=== PATIENT | male | born 1945 | race Caucasian/White ===

== ENCOUNTER 2017-07-13 07:30 | Day surgery (SDC) | payer MEDICARE ==
[~2017-07-13] VITALS: Ht 193 cm; Wt 102.5 kg
[~2017-07-13 07:30] MED LIST: ASPI81CH PO; ATEN50 PO; CYAN100 PO; ERGO400 PO; ESCI10 PO; Flonase 0.05% N16 GM; HYDCHL25 PO; LORA.5 PO; LOVA40 PO; UBID10 PO
== END 2017-07-13 22:49 | disposition home or self-care (01) ==
LOC: ORSCMMR 07:30
DX: Z12.11 Encounter for screening for malignant neoplasm of colon (principal); D12.2 Benign neoplasm of ascending colon; D12.4 Benign neoplasm of descending colon; K57.30 Diverticulosis of large intestine without perforation or abscess without bleeding; Z86.010 Personal history of colon polyps; I10 Essential (primary) hypertension; F41.9 Anxiety disorder, unspecified; E78.00 Pure hypercholesterolemia, unspecified; Z79.82 Long term (current) use of aspirin; Z79.899 Other long term (current) drug therapy
CPT/HCPCS: 88305; J7120

== ENCOUNTER 2019-05-07 09:25 | Day surgery (SDC) | payer MEDICARE ==
--- NOTE | 2019-05-07 11:36 | NUR ---
PT REPORT FROM ANNALISA MAYER RN. PT DENIES PAIN. INSERTION SITE OF NEEDLE CLEAR. VSS, OFFERED FOOD, FLUIDS, AND WARM BLANKETS. CALL LIGHT AT BEDSDIE ALONG WITH . PT EDUCATED ABOUT PLAN FOR STEP.
--- NOTE | 2019-05-07 13:06 | NUR ---
ELIUD C/D/I. NO NEW SYMPTOMS, PT STABLE T/O STAY. AMBULATED OUT OF DEPARTMENT. SEVEN HIGGINS ALREADY REVIEWED Discharge instructions with patient. Patient verbalizes understanding. Copy given to patient to take home.
[2019-05-07 15:03] LABS: Automated BF RBC Count 0.061 M/mm3 (0-0); Automated BF WBC Count 1.406 K/mm3 (0-999); Body Fluid WBC Count 1406 /mm3 (0-999); RBC Count, Body Fluid 61000 /mm3 (0-0)
[2019-05-07 15:26] LABS: Glucose, Body Fluid 99 mg/dL; Lactate Dehydrogenase, Body Fl 327 U/L; Protein, Body Fluid 5.4 g/dL
[2019-05-07 15:31] LABS: Appearance, Body Fluid Cloudy (Clear); Color, Body Fluid Red (None-Yellow); Total Cell Count, Body Fluid 100
== END 2019-05-07 13:04 | disposition home or self-care (01) ==
LOC: CT 09:25
PROVIDERS: Internal Medicine
DX: J98.4 Other disorders of lung (principal); F41.9 Anxiety disorder, unspecified; E80.4 Gilbert syndrome; I10 Essential (primary) hypertension; E78.5 Hyperlipidemia, unspecified; G62.9 Polyneuropathy, unspecified; H81.02 Meniere's disease, left ear; Z88.2 Allergy status to sulfonamides; Z79.899 Other long term (current) drug therapy; Z85.48 Personal history of malignant neoplasm of epididymis; Z79.82 Long term (current) use of aspirin
CPT/HCPCS: 32405; 77012; 82945; 83615; 84157; 89051

== ENCOUNTER 2019-05-16 13:35 | Day surgery (SDC) | payer MEDICARE ==
[2019-05-29] MEDS ORDERED: METO25ER PO (14:17)
== END 2019-05-16 23:16 | disposition home or self-care (01) ==
LOC: US 13:35
DX: J90 Pleural effusion, not elsewhere classified (principal); R91.8 Other nonspecific abnormal finding of lung field
CPT/HCPCS: 32555; 71045

== ENCOUNTER 2019-05-17 08:43 | Day surgery (SDC) | payer MEDICARE ==
--- NOTE | 2019-05-17 11:55 | NUR ---
PT TO ROOM FROM IMAGING. VS IN PROGRESS. PT TACHY AT TIMES, BUT OTHERWISE ASYMPTOMATIC AND STABLE. PT DENIES PAIN, SOB, AND N/V. BANDAID CDI TO R LATERAL CHEST. BEDREST AT THIS TIME PER ORDERS. AT BEDSIDE FOR SUPPORT. OFFERING SIPS OF WATER. CALL LIGHT WITHIN REACH.
--- NOTE | 2019-05-17 13:30 | NUR ---
DISCHARGE PT EDUCATED ON AND RECEIVED PRINTED DC INSTRUCTIONS AND VERBALIZED AN UNDERSTANDING. PT HAD NO IV ACCESS. NO NEW RX. PT LEFT WITH AT SIDE.
== END 2019-05-17 13:20 | disposition home or self-care (01) ==
LOC: US 08:43 → CT 10:00 → SURS 11:41 → US 13:20 → CT 05-22 11:00 → US 05-22 11:00 → CT 05-23 09:00
DX: J90 Pleural effusion, not elsewhere classified (principal); R91.8 Other nonspecific abnormal finding of lung field; Z88.2 Allergy status to sulfonamides
CPT/HCPCS: 32405; 32555; 77012

== ENCOUNTER 2019-06-03 11:42 | Observation (INO) | payer MEDICARE ==
[~2019-06-03] VITALS: Ht 190.5 cm; Wt 93.5 kg
[~2019-06-03 11:42] MED LIST changes: +METO25ER PO
--- NOTE | 2019-06-03 12:15 | NUR ---
INTO [facility] VIA WHEELCHAIR. PT ABLE TO STAND FOR WEIGHT, BUT VERY SOB WITH MINIMAL EXERTION. INCREASED WOB NOTED. LUNGS EXTREMELY DIMINISHED THROUGH OUT RIGHT LUNG WILLIS. SAT>90% ON RA. RESP 28-32. ECG SHOWS SVT VS. AFIB WITH RVR-RATE 140'S-150'S. WILL NOTIFY DR. MCCOLLUM. PT TOOK HIS METOPROLOL THIS AM WITH A SIP OF WATER. HISTORY AND ALLERGIES REVIEWED. NPO STATUS CONFIRMED. Patient reports completing Chlorhexadine shower X2 prior to admission to hospital.Surgical site prepped with 2% Chlorhexidine cloth wipe. Patient States Post-Procedure ride home has been arranged.
--- NOTE | 2019-06-03 12:35 | NUR ---
DR. HALEY TO BE ANESTHESIOLOGIST FOR PT. NOTIFIED OF ARRHYTMIA. 12 LEAD ECG DONE PER MD VERBAL ORDER.
--- NOTE | 2019-06-03 12:58 | NUR ---
CBC, CHEM PROFILE,MG+, TROPONIN I DRAWN WITH IV START AND SENT TO LAB TO BE RAN STAT.
[2019-06-03 13:13] LABS: BASOPHILS ABSOLUTE AUTO 0.03 K/mm3 (0.00-0.23); BASOPHILS PERCENT AUTO 0 % (0-2); EOSINOPHILS ABSOLUTE AUTO 0.01 K/mm3 (0.00-0.68); EOSINOPHILS PERCENT AUTO 0 % (0-6); Hematocrit 39.6 % (37.0-53.0); Hemoglobin 13.3 g/dL (13.5-17.5); IMMATURE GRAN ABSOLUTE AUTO 0.04 K/mm3 (0.00-0.10); IMMATURE GRAN PERCENT AUTO 0 % (0-1); LYMPHOCYTES ABSOLUTE AUTO 0.67 K/mm3 (0.84-5.20); LYMPHOCYTES PERCENT AUTO 6 % (21-46); MONOCYTES PERCENT AUTO 9 % (4-13); Mean Corpuscular HGB 31.4 pg (26.0-34.0); Mean Corpuscular HGB Conc 33.6 g/dL (31.5-36.5); Mean Corpuscular Volume 93 fL (80-100); NEUTROPHILS PERCENT AUTO 85 % (41-73); Platelet Count 467 K/mm3 (150-400); RDW Coefficient Variation 12.3 % (11.7-14.2); RDW Standard Deviation 42.7 fL (35.1-46.3); Red Blood Cell Count 4.24 M/mm3 (4.30-5.90); White Blood Cell Count 12.05 K/mm3 (4.00-11.30)
--- NOTE | 2019-06-03 13:22 | NUR ---
DR. VAZQUEZ AND DR. HALEY UPDATED TO PT CONTINUED HR 140'S-HOSPITALIST CONSULT REQUESTED. DR. CHERRY NOTIFIED. DR. CHERRY TO SEE PT IN SDS-ANTICIPATE HOSPITALIST ADMIT.
[2019-06-03 13:47] LABS: Alanine Aminotransfer (ALT/SGP 50 U/L (12-78); Albumin, Blood 2.4 g/dL (3.4-5.0); Albumin/Globulin Ratio 0.4 (0.8-1.8); Alk Phos 83 U/L (50-136); Anion Gap 13 mmol/L (6-16); Aspartate Aminotrans (AST/SGOT 72 U/L (12-37); Bilirubin, Total 1.2 mg/dL (0.1-1.0); Blood Urea Nitrogen 12 mg/dL (8-24); Bun/Creatinine Ratio 20.2 (12.0-20.0); CO2, Blood 29 mmol/L (21-32); Calcium, Blood 9.4 mg/dL (8.5-10.1); Chloride, Blood 87 mmol/L (98-108); Globulin, Blood 6.2 g/dL (2.2-4.0); Glomerular Filtration Rate >60 (60-); Glucose, Blood 107 mg/dL (70-99); Magnesium, Blood 1.8 mg/dL (1.6-2.4); Potassium, Blood 4.1 mmol/L (3.5-5.5); Sodium, Blood 129 mmol/L (136-145); Total Protein, Blood 8.6 g/dL (6.4-8.2); Troponin I <0.015 ng/mL (0.000-0.040)
--- NOTE | 2019-06-03 13:56 | NUR ---
DR. PEPPER ANDRADE IS MD COVERING FOR DR. TANG CONSULTED. ORDERS GIVEN TO ADMIT PT TO PCU-NURSING PROFESSOR OF PRACTICE NOTIFIED.
--- NOTE | 2019-06-03 15:03 | NUR ---
DR. JOSELO ANDRADE AT BEDSIDE TO EVALUATE PT. ORDERS GIVEN TO MED PT WITH METOPROLOL 50 MG PO X 1 NOW-SEE EMAR. DR. VAZQUEZ ALSO AT BEDSIDE TO SEE PT. INFORMED CONSENT OBTAINED. PLAN TO PROCEED WITH RIGHT PLEURX CATH PLACEMENT. HR 90'S TO 100'S-CONTINUES AFIB/FLUTTER. PT WILL BE ADMITTED PCU OBS POST PROCEDURE. REPORT GIVEN TO SEVEN GLASS.
[2019-06-03] MEDS ORDERED: HYDR1TAB94 PO (18:37)
--- NOTE | 2019-06-03 22:16 | NUR ---
TELE PLACED. SINUS RHYTHM @ 69 BPM PER PINION STAKER. PT DENIES ANY CHEST PAIN OR SOB.
[2019-06-04 04:25] LABS: BASOPHILS ABSOLUTE AUTO 0.01 K/mm3 (0.00-0.23); BASOPHILS PERCENT AUTO 0 % (0-2); EOSINOPHILS PERCENT AUTO 0 % (0-6); Hemoglobin 11.5 g/dL (13.5-17.5); IMMATURE GRAN ABSOLUTE AUTO 0.03 K/mm3 (0.00-0.10); IMMATURE GRAN PERCENT AUTO 0 % (0-1); LYMPHOCYTES ABSOLUTE AUTO 0.55 K/mm3 (0.84-5.20); LYMPHOCYTES PERCENT AUTO 6 % (21-46); MONOCYTES ABSOLUTE AUTO 0.42 K/mm3 (0.16-1.47); MONOCYTES PERCENT AUTO 4 % (4-13); Mean Corpuscular HGB 30.4 pg (26.0-34.0); Mean Corpuscular HGB Conc 32.9 g/dL (31.5-36.5); Mean Corpuscular Volume 93 fL (80-100); Mean Platelet Volume 9.9 fL (9.1-12.4); NEUTROPHILS PERCENT AUTO 89 % (41-73); Platelet Count 450 K/mm3 (150-400); RDW Coefficient Variation 12.4 % (11.7-14.2); RDW Standard Deviation 42.4 fL (35.1-46.3); Red Blood Cell Count 3.78 M/mm3 (4.30-5.90); White Blood Cell Count 9.51 K/mm3 (4.00-11.30)
[2019-06-04 04:51] LABS: Anion Gap 13 mmol/L (6-16); Blood Urea Nitrogen 20 mg/dL (8-24); Bun/Creatinine Ratio 25.6 (12.0-20.0); CO2, Blood 27 mmol/L (21-32); Calcium, Blood 9.1 mg/dL (8.5-10.1); Chloride, Blood 90 mmol/L (98-108); Creatinine, Blood 0.78 mg/dL (0.60-1.20); Glomerular Filtration Rate >60 (60-); Glucose, Blood 124 mg/dL (70-99); Potassium, Blood 3.7 mmol/L (3.5-5.5); Sodium, Blood 130 mmol/L (136-145); Troponin I <0.015 ng/mL (0.000-0.040)
--- NOTE | 2019-06-04 05:42 | NUR ---
SHIFT SUMMARY: BAILEY IS A&OX4. HE DENIES ANY CHEST PAIN OR SOB SINCE THE INSERTION OF THE PLEUREX CATHETER AND DRAINAGE OF FLUID YESTERDAY. HE DENIES ANY PAIN. THE DRESSING OVER THE INCISION IS C/D&I. HE IS ON TELEMETRY, SINUS RHYTHM AT 69 BPM PER THE HOSPITAL FOOD SERVICE WORKER. HE IS ABLE TO MAKE HIS NEEDS KNOWN. HE IS TOLERATING PO INTAKE WELL. HE IS USING THE URINAL WITHOUT DIFFICULTIES. VSS. HE RESTED INTERMITTENTLY DURING THE SHIFT. HE IS LYING COMFORTABLY IN BED WITH HIS CALL LIGHT IN REACH.
--- NOTE | 2019-06-04 08:54 | NUR ---
OTHER STAFF REPORTS COMPLETING ECHO.
--- NOTE | 2019-06-04 10:42 | NUR ---
DR Crow ANDRADE HERE TO SEE PT.
--- NOTE | 2019-06-04 12:20 | NUR ---
Echocardiogram completed.
--- NOTE | 2019-06-04 14:25 | NUR ---
Received call from Remy Perez reporting Pt received PleurX drain today. Ana reports Pt may benefit from education regarding draining. Called and spoke with Dr Hodges and discussed case. Dr Hodges reports Pt received education on drain in his office prior to procedure. Pt resting in bed and appears comfortable. Assessed Pt's comfort level regarding draining. Pt reports feeling confident. Pt reports his is also confident with understanding of draining. Pt reports no concerns at this time. Palliative Care will remain available.
--- NOTE | 2019-06-04 14:26 | NUR ---
06/04/19 1426 Gris Reynoso VERIFICATIONS: EDIT CHART.
--- NOTE | 2019-06-04 15:16 | NUR ---
Pt being discharged. is present during visit. reports Pt's PleurX kits have not been delivered to his home yet. Pt and request a starter kit incase delivery does not arrive in time. Delivered PleurX drain shaquille and charged kit on chargd sheet. Pt and report no other concerns. Pt and reports no concerns with draining. Palliative Care will remain available.
--- NOTE | 2019-06-04 15:27 | NUR ---
DISCHARGE: PT EATING AND DRINKING. PT VOIDING. PT HAS HAD NO CP OR SOB. PT IV OUT WNL. PT AND FAMILY REPORTS UNDERSTANDING OF DISCHARGE INSTRUCTIONS. ELECTROMECHANIC BEEN ASSISTING WITH PT'S DISCHARGE. PALLIATIVE CARE ALSO ASSISTING WITH PT DISCHARGE INSTRUCTIONS AND EQUIPMENT SENT HOME WITH PT. FAMILY PRESENT AT TIME OF INSTRUCTIONS AND IS GIVING PT RIDE HOME. PT ALSO BEEN CLEARED BY DR VAZQUEZ TO GO HOME TODAY.
--- NOTE | 2019-06-04 15:30 | NUR ---
PT MED CALLED TO [facility] PER HIS REQ.
[2019-06-06 14:06] LABS: A/G RATIO 0.6 (0.7-1.7); ALBUMIN 2.3 g/dL (2.9-4.4); ALPHA-1-GLOBULIN 0.4 g/dL (0.0-0.4); BETA GLOBULIN 0.9 g/dL (0.7-1.3); GAMMA GLOBULIN 1.7 g/dL (0.4-1.8); M-SPIKE Not Observed g/dL (Not Observed); PROTEIN, TOTAL, SERUM 6.3 g/dL (6.0-8.5)
== END 2019-06-04 15:18 | disposition home or self-care (01) ==
LOC: ORSCMMR 11:42 → ORD 13:00 → ORSCMMR 13:00 → PCU 13:55 → SURS 13:55 → ORSCMMR 13:55 → ICUW 14:38 → SURS 18:37
PROVIDERS: Anesthesiology; Family Medicine; Surgery; ADMIT Family Medicine
PROC: 0B9N30Z Drainage of Right Pleura with Drainage Device, Percutaneous Approach (ICD-10-PCS; principal; 2019-06-03 13:00)
DX: C34.91 Malignant neoplasm of unspecified part of right bronchus or lung (principal); J91.0 Malignant pleural effusion; I48.92 Unspecified atrial flutter; I48.0 Paroxysmal atrial fibrillation; R09.02 Hypoxemia; E87.1 Hypo-osmolality and hyponatremia; D12.6 Benign neoplasm of colon, unspecified; E78.5 Hyperlipidemia, unspecified; I10 Essential (primary) hypertension; G60.9 Hereditary and idiopathic neuropathy, unspecified; N40.1 Benign prostatic hyperplasia with lower urinary tract symptoms; N39.498 Other specified urinary incontinence; H81.02 Meniere's disease, left ear; F41.9 Anxiety disorder, unspecified; Z79.82 Long term (current) use of aspirin; Z79.899 Other long term (current) drug therapy; Z88.2 Allergy status to sulfonamides; Z85.46 Personal history of malignant neoplasm of prostate; Z90.79 Acquired absence of other genital organ(s)
CPT/HCPCS: 36415; 71046; 80048; 80053; 83735; 84165; 84484; 85025; 93005; 93010; 93306; 96372; C1729; G0378; J0690; J1100; J1650; J1885; J2370; J2405; J2704; J3010; J7120

== ENCOUNTER 2019-07-04 12:10 | Observation (INO) | payer MEDICARE ==
[~2019-07-04] VITALS: Ht 193 cm; Wt 82.6 kg
[~2019-07-04 12:10] MED LIST changes: +HYDR1TAB94 PO
[2019-07-04 12:53] LABS: BASOPHILS ABSOLUTE AUTO 0.06 K/mm3 (0.00-0.23); BASOPHILS PERCENT AUTO 0 % (0-2); EOSINOPHILS ABSOLUTE AUTO 0.01 K/mm3 (0.00-0.68); EOSINOPHILS PERCENT AUTO 0 % (0-6); Hematocrit 37.4 % (37.0-53.0); Hemoglobin 12.2 g/dL (13.5-17.5); IMMATURE GRAN ABSOLUTE AUTO 0.08 K/mm3 (0.00-0.10); IMMATURE GRAN PERCENT AUTO 1 % (0-1); LYMPHOCYTES ABSOLUTE AUTO 0.75 K/mm3 (0.84-5.20); LYMPHOCYTES PERCENT AUTO 6 % (21-46); MONOCYTES ABSOLUTE AUTO 1.33 K/mm3 (0.16-1.47); MONOCYTES PERCENT AUTO 10 % (4-13); Mean Corpuscular HGB Conc 32.6 g/dL (31.5-36.5); Mean Corpuscular Volume 89 fL (80-100); Mean Platelet Volume 9.9 fL (9.1-12.4); NEUTROPHILS ABSOLUTE AUTO 11.43 K/mm3 (1.96-9.15); NEUTROPHILS PERCENT AUTO 84 % (41-73); Platelet Count 576 K/mm3 (150-400); RDW Coefficient Variation 14.4 % (11.7-14.2); RDW Standard Deviation 46.5 fL (35.1-46.3); White Blood Cell Count 13.66 K/mm3 (4.00-11.30)
[2019-07-04 13:33] LABS: Alanine Aminotransfer (ALT/SGP 42 U/L (12-78); Albumin, Blood 2.3 g/dL (3.4-5.0); Albumin/Globulin Ratio 0.4 (0.8-1.8); Alk Phos 104 U/L (50-136); Anion Gap 16 mmol/L (6-16); Aspartate Aminotrans (AST/SGOT 99 U/L (12-37); Bilirubin, Total 0.7 mg/dL (0.1-1.0); Blood Urea Nitrogen 10 mg/dL (8-24); Bun/Creatinine Ratio 18.4 (12.0-20.0); CO2, Blood 23 mmol/L (21-32); Calcium, Blood 9.4 mg/dL (8.5-10.1); Chloride, Blood 91 mmol/L (98-108); Creatinine, Blood 0.54 mg/dL (0.60-1.20); Globulin, Blood 5.9 g/dL (2.2-4.0); Glomerular Filtration Rate >60 (60-); Glucose, Blood 101 mg/dL (70-99); Potassium, Blood 3.9 mmol/L (3.5-5.5); Sodium, Blood 130 mmol/L (136-145); Total Protein, Blood 8.2 g/dL (6.4-8.2); Troponin I <0.015 ng/mL (0.000-0.040)
[2019-07-04 15:51] LABS: International Normalized Ratio 1.19; Prothrombin Time Results 12.4 Sec (9.7-11.5)
[2019-07-04] MEDS ORDERED: FOLI1 PO (17:26)
--- NOTE | 2019-07-04 19:10 | NUR ---
1715 RECEIVED PT TO RM 309 VIA GURJONO FROM ER. PT ADMITTED FOR SX TO REPLACE PLEUREX DRAIN THAT HAS QUIT WORKING/DRAINING. RECEIVED REPORT FROM JENNIFER AMEZCUA, PT WITH NEW DX OF LUNG CA RECENTLY. R PLEURAL CATH PLACED AND WAS DRAINING BUT RECENTLY STOPPED. PT REPORTING INCREASED SOB. PT INSTRUCTED TO COME IN FOR REPLACEMENT. DR BRANCH CONSULTED. PT TO BE NPO AT [place] FOR SX IN AM. PT INFORMED. PT ABLE TO EAT AND DRINK AT THIS TIME UNTIL THEN. DR BASS IN TO SEE PT A FEW MINUTES AGO. NEW ORDERS TO FOLLOW. PT RESTING QUIETLY WATCHING TV. NO S/SX OF DISTRESS NOTED. CALL LT IN REACH.
--- NOTE | 2019-07-04 22:08 | NUR ---
REPORTED BACK PAIN AND NORCO GIVEN PER EMAR. PATIENT REPORTED ANXIETY BEING IN HOSPITAL. PO ATIVAN 0.5 MG GIVEN PER EMAR. PATIENT REPORTS HE WANTS TO SLEEP AT THIS TIME WITHOUT TV ON. CALL LIGHT IN REACH.
--- NOTE | 2019-07-05 03:26 | NUR ---
SHIFT SUMMARY PATIENT HAD NO ACUTE CHANGES OBSERVED. AXOX 3 AND INDEPENDENT IN ROOM. NPO > MIDNIGHT. VSS/AFBERILE. REPORTED BACK PAIN AND ANXIOUS BEING IN HOSPITAL. NORCO AND ATIVAN GIVEN PER EMAR. PATIENT ABLE TO SLEEP. PIV REMAINS INTACT. DR BASS PRESENT AT SHIFT CHANGE AND REPORTS HE WILL PLACE ORDERS. PATIENT UP A FEW TIMES REPORTING HE WILL HAVE SURGERY AND CANNOT SLEEP. COOPERATIVE WITH CARE. CALL LIGHT IN REACH. BED IN LOWEST POSITION. WILL CONTINUE TO MONITOR UNTIL DAY SHIFT NURSE ASSUMES CARE.
--- NOTE | 2019-07-05 09:00 | NUR ---
INTO [facility] ADMISSION STARTED, AT BEDSIDE.
--- NOTE | 2019-07-05 15:11 | NUR ---
Brief visit this afternoon. Received report from bedside RN Royal that Pt may benefit from Palliative Care visit to review PleurX drain. Pt is getting ready to discharge upon arrival. Pt's Kelly present during visit. Assessed Pt and 's comfort level with PleurX drain. Both report no concerns at this time. Listened as Kelly explains events leading up to new drain. Kelly reports plan is Pt to start chemo therapy and was told to not drain until appointment. Pt and report no concerns. Left Palliative Care contact information and instructed to call with any questions or concerns. Palliative Care will remain available.
--- NOTE | 2019-07-05 15:43 | NUR ---
SHIFT SUMMARY PT AWAKE AND AMBULATING AROUND AND TO [place], DURING SHIFT REPORT. PT HAD SOME CONFUSION, THOUGH NOT AWARE OF IT. WAS ARGUING WITH HIS TO WHAT TIME OF DAY IT WAS, PT THINKING IT WAS NIGHT TIME WHEN IT WAS AM. PT THEN GOT DRESSED AND WAS GOING TO GO FIND DR BRANCH AND SEE ABOUT HIS SX. PT ENCOURAGED TO WAIT IN HIS RM UNTIL TIME FOR PROCEDURE. PT BACK OUT TO [place] A FEW MINUTES LATER TO GO LOOK FOR HIS , WHO HADN'T COME IN YET. PT SOMEWHAT ANXIOUS AND UNABLE TO RELAX. PT TAKEN TO SX FOR REPLACEMENT OF R PLEUREX DRAIN. PT TOLERATED PROCEDURE WELL. 11:08 PT RETURNED TO . ABLE TO TX SELF BACK TO BED WITH 1P SBA. DR BRANCH ORDERED CT OF CHEST TO DETERMINE CAUSE OF MINIMAL DRAIN OUTPUT. DISCUSSED CASE WITH DR PORTILLO. PT TO FOLLOW UP WITH DR YANEZ AND START CHEMO NEXT WEEK. D/C ORDERS PLACED BY DR FARFAN. PT READY TO GO HOME. IMMEDIATELY GOT DRESSED AND WAITED FOR D/C PAPERS. PALLATIVE CARE RN CHECKED ON PT AND BEFORE LEAVING [place] CM. PT AND DENIED FURTHER NEEDS. IV TO RFA D/C'D WNL. PT ABLE TO TX TO W/C AND ASSISTED OUT TO 'S CAR BY CIVIL PROJECT ENGINEER.
== END 2019-07-05 15:35 | disposition home or self-care (01) ==
LOC: ER 12:10 → MEDS 12:11
PROVIDERS: Emergency Medicine; Physician Assistant; Surgery; ADMIT Internal Medicine Endocrinology, Diabetes & Metabolism
PROC: 0W9930Z Drainage of Right Pleural Cavity with Drainage Device, Percutaneous Approach (ICD-10-PCS; principal; 2019-07-05 09:30)
DX: T85.698A Other mechanical complication of other specified internal prosthetic devices, implants and grafts, initial encounter (principal); C34.91 Malignant neoplasm of unspecified part of right bronchus or lung; J91.0 Malignant pleural effusion; E87.1 Hypo-osmolality and hyponatremia; I48.20 Chronic atrial fibrillation, unspecified; I48.92 Unspecified atrial flutter; G60.9 Hereditary and idiopathic neuropathy, unspecified; H81.02 Meniere's disease, left ear; F41.8 Other specified anxiety disorders; J98.19 Other pulmonary collapse; Z85.46 Personal history of malignant neoplasm of prostate; Z88.2 Allergy status to sulfonamides; Z79.899 Other long term (current) drug therapy; Y83.8 Other surgical procedures as the cause of abnormal reaction of the patient, or of later complication, without mention of misadventure at the time of the procedure
CPT/HCPCS: 36415; 71046; 71250; 80053; 83880; 84484; 85025; 85610; 85730; 93005; 93010; 99285-25; A9270-GY; C1729; G0378; J0690; J1100; J2250; J2405; J2704; J3010; J7120

== ENCOUNTER 2019-08-22 18:37 | Inpatient (IN) | payer MEDICARE ==
[~2019-08-22] VITALS: Ht 193 cm; Wt 74.5 kg
[~2019-08-22 18:37] MED LIST changes: -Augmentin 875-1 EACH PO; -DEXA.5; -ELIQUIS5 MG PO; -FOLI1 PO; -HYDR1TAB94 PO; -LORA.5 PO; -LOVA40 PO; -OMEP20ER PO
--- NOTE | 2019-08-23 00:12 | NUR ---
08/22/19 2340 PT ADMITTED TO PCU-2 PER CART FROM ER; REPORT RECEIVED FROM SEVEN TSAI; PTS AT SIDE AND SUPPORTIVE; ALERT TO PERSON ONLY; SPEECH GARBLED; BED ALARM APPLIED.
[2019-08-23 01:45] LABS: BASOPHILS ABSOLUTE AUTO 0.03 K/mm3 (0.00-0.23); BASOPHILS PERCENT AUTO 0 % (0-2); EOSINOPHILS PERCENT AUTO 0 % (0-6); Hematocrit 28.3 % (37.0-53.0); Hemoglobin 8.8 g/dL (13.5-17.5); IMMATURE GRAN ABSOLUTE AUTO 0.42 K/mm3 (0.00-0.10); IMMATURE GRAN PERCENT AUTO 2 % (0-1); LYMPHOCYTES ABSOLUTE AUTO 0.62 K/mm3 (0.84-5.20); LYMPHOCYTES PERCENT AUTO 3 % (21-46); MONOCYTES PERCENT AUTO 6 % (4-13); Mean Corpuscular HGB 28.1 pg (26.0-34.0); Mean Corpuscular HGB Conc 31.1 g/dL (31.5-36.5); Mean Corpuscular Volume 90 fL (80-100); NEUTROPHILS ABSOLUTE AUTO 19.95 K/mm3 (1.96-9.15); NEUTROPHILS PERCENT AUTO 89 % (41-73); NRBC ABSOLUTE 0.11 K/mm3 (0.00-0.02); NRBC Auto 0.5 /100 WBC (0.0-0.2); Platelet Count 579 K/mm3 (150-400); RDW Coefficient Variation 22.5 % (11.7-14.2); RDW Standard Deviation 66.4 fL (35.1-46.3); Red Blood Cell Count 3.13 M/mm3 (4.30-5.90); White Blood Cell Count 22.32 K/mm3 (4.00-11.30)
[2019-08-23 02:04] LABS: Alanine Aminotransfer (ALT/SGP 23 U/L (12-78); Albumin, Blood 2.3 g/dL (3.4-5.0); Albumin/Globulin Ratio 0.5 (0.8-1.8); Alk Phos 110 U/L (50-136); Anion Gap 11 mmol/L (6-16); Aspartate Aminotrans (AST/SGOT 35 U/L (12-37); Bilirubin, Total 0.7 mg/dL (0.1-1.0); Blood Urea Nitrogen 27 mg/dL (8-24); Bun/Creatinine Ratio 45.5 (12.0-20.0); CO2, Blood 28 mmol/L (21-32); Chloride, Blood 101 mmol/L (98-108); Creatinine, Blood 0.59 mg/dL (0.60-1.20); Globulin, Blood 4.7 g/dL (2.2-4.0); Glomerular Filtration Rate >60 (60-); Glucose, Blood 106 mg/dL (70-99); Potassium, Blood 4.5 mmol/L (3.5-5.5); Sodium, Blood 140 mmol/L (136-145)
--- NOTE | 2019-08-23 05:00 | NUR ---
SHIFT SUMMARY: 73 Y/O MALE HAD RESTLESS NIGHT ALL SHIFT WHILE ATTEMPTING CLIMB OOB, REMOVING TELEMETRY/OXYGEN/RIGHT FLANK DRESSING/ARMBAND; MD WAS NOTIFIED AND HALDOL 3MG IVP WAS GIVEN WITH GOOD RESULTS (PT ABLE TO RELAX AND SLEEP); PT IS ALERT TO PERSON ONLY; INCONTIENT BLADDER WITH ATTENDS APPLIED; TELEMETRY REFLECTS NSR PER LILIANA--FAMILY COURT COUNSELLOR; PTS LACTIC ACID WAS 8.9 UPON ADMISSION AND AT 0140 WAS 7.0; BED ALARM APPLIED, BED LOW POSITION WITH CALL LIGHT AT SIDE.
--- NOTE | 2019-08-23 07:30 | NUR ---
pt laying in bed, wakes easily, but looked startled when he opened his eyes, mumbling incoherently, is pleasant and tries to follow directions, but is busy with his hands pulling his gown off, trying to get his pjs off, PT in to see him this am, lungs are dim t/o, resp even and unlabored is on r/a at this time, no cough noted, hrr, tele in place running sr per monitor, see strip, no edema noted, ppp+1, cap refill <3sec, vs stable, afebrile, iv site to rac, site is clear and patent, btx4, abd flat soft nontender, voids via urinal, skin has some scabs to b/l le, is pale, maew, aly, call light in reach.
--- NOTE | 2019-08-23 12:55 | NUR ---
With the assistance of Ana Palliative care, the pleurex drainage container was attatched and 550 cc of margret fluid was evacuated. The pt reported that he was having NO difficulty breathing, NO pain , No dyspnea nor any other symptoms during the few minutes that the drainage occured. His Kelly was at the bedside the whole time. Fluid was sent to lab as ordered for analysis.
--- NOTE | 2019-08-23 13:19 | NUR ---
Met with Young and his . Assisted PCU charge account identification clerk to drain pleurX drain from right chest and to collect a sample of the fluid for testing. Young's reports they met with Sharifa Hernandez today to set up HH for when they go home. They are interested in getting a BSC and hospital bed for home. Young reports he uses a walker and a wc to get around. He is currently undergoing cancer treatments and plans to continue at this time. His is very knowledgable re: the pleurx drain as she manages it at home. She reports that she drains it every 3-4 days and that they normally get 350-400 ml with each drainage. They report his pleurx was last drained about 6 days ago. They voice no concerns at this time. Young was tired during this visit to drain his pleurx. He did close his eyes several times during the visit. Will plan to sit down with Young and his at a different time to discuss his goals and advanced care planning going forward. Young tolerated the pleurx drainage without difficulty. No coughing or c/o pain.
[2019-08-23 15:22] LABS: Vancomycin, Trough 16.7 ug/mL (5.0-10.0)
--- NOTE | 2019-08-23 18:13 | NUR ---
pt has been up to the chair several times, at bedside all day, no acute changes, reports he will likely send him home tomorrow. no further changes this shift, call light in reach.
--- NOTE | 2019-08-24 05:27 | NUR ---
SHIFT SUMMARY PT ALERT; AND FAMILY WAS AT BEDSIDE AT START OF SHIFT; VSS; NSR NOTED ON TELE;O2 SATS >93 ON RA; DIM LUNG SOUNDS ON R SIDE; NO EDEMA NOTED; PT DENIES PAIN; PT BECAME PROGRESSIVELY CONFUSED T/O NIGHT; CALLING OUT; REFUSING MEDS; PROVIDER NOTIFIED APPROXIMATELY 0010 OF PT REFUSING IV ABX; PROVIDER STATED VANCO AND ZOZYN COULD BE DELAYED NOT TO CAUSE ADDITIONAL TRAUMA TO PT; WARM BLANKETS OFFERED PT REFUSED; OFFERED TO CALL , PT REFUSED; PT STATED HE WAS DYING AND DATA MODELING ARCHITECT WERE COMING; PT REASSURED AND THIS RN SAT W/ PT; ADDITIONAL RN IN ROOM TO REASSURE PT; PT DENIES PAIN; CALL LIGHT IN REACH; BED IN LOWEST POSITION; WILL CONTINUE TO MONITOR CLOSELY UNTIL HAND OFF TO DAY SHIFT RN.
[2019-08-24 07:10] LABS: BASOPHILS ABSOLUTE AUTO 0.03 K/mm3 (0.00-0.23); BASOPHILS PERCENT AUTO 0 % (0-2); EOSINOPHILS PERCENT AUTO 0 % (0-6); Hematocrit 27.6 % (37.0-53.0); Hemoglobin 8.6 g/dL (13.5-17.5); IMMATURE GRAN ABSOLUTE AUTO 0.18 K/mm3 (0.00-0.10); IMMATURE GRAN PERCENT AUTO 1 % (0-1); LYMPHOCYTES ABSOLUTE AUTO 0.57 K/mm3 (0.84-5.20); LYMPHOCYTES PERCENT AUTO 2 % (21-46); MONOCYTES ABSOLUTE AUTO 1.11 K/mm3 (0.16-1.47); MONOCYTES PERCENT AUTO 4 % (4-13); Mean Corpuscular HGB 28.8 pg (26.0-34.0); Mean Corpuscular HGB Conc 31.2 g/dL (31.5-36.5); Mean Corpuscular Volume 92 fL (80-100); Mean Platelet Volume 10.2 fL (9.1-12.4); NEUTROPHILS ABSOLUTE AUTO 24.69 K/mm3 (1.96-9.15); NEUTROPHILS PERCENT AUTO 93 % (41-73); NRBC ABSOLUTE 0.05 K/mm3 (0.00-0.02); NRBC Auto 0.2 /100 WBC (0.0-0.2); Platelet Count 516 K/mm3 (150-400); RDW Coefficient Variation 23.4 % (11.7-14.2); RDW Standard Deviation 70.4 fL (35.1-46.3); Red Blood Cell Count 2.99 M/mm3 (4.30-5.90); White Blood Cell Count 26.58 K/mm3 (4.00-11.30)
[2019-08-24 07:29] LABS: Vancomycin, Trough 17.5 ug/mL (5.0-10.0)
[2019-08-24 07:40] LABS: Anion Gap 14 mmol/L (6-16); Blood Urea Nitrogen 33 mg/dL (8-24); Bun/Creatinine Ratio 43.2 (12.0-20.0); CO2, Blood 27 mmol/L (21-32); Calcium, Blood 8.6 mg/dL (8.5-10.1); Chloride, Blood 100 mmol/L (98-108); Creatinine, Blood 0.76 mg/dL (0.60-1.20); Glomerular Filtration Rate >60 (60-); Glucose, Blood 91 mg/dL (70-99); Potassium, Blood 3.9 mmol/L (3.5-5.5); Sodium, Blood 141 mmol/L (136-145)
--- NOTE | 2019-08-24 11:30 | NUR ---
see down time paperwork for am notes. Patient has had very poor appetite even with bedside family encouragement. He snacked on apples at lunch and juices. Dr Lorenz discharged and will be leaving around 1600. VSS See EMR
[2019-08-24] MEDS ORDERED: Augmentin 875-1 EACH PO (13:07)
--- NOTE | 2019-08-24 13:32 | NUR ---
Patient resting and awaiting to go home. I spoke with and did education on caring for coccyx skin. Family remains at bedside while patient sleeps. We are not draining pluerex today prior to leaving. Reposition several times. He remains coarse t/o and upper air has not needed suction in several hours and sounds well.
--- NOTE | 2019-08-24 15:05 | NUR ---
Patient personal belongings gathered and got him dressed. We placed in wheelchair and they were given written discharge instruction and they returned understanding of meds an d appts. They were taken to POV and i loaded him in to front seat and the went home pov. I took him out on 4 Lfor the ride and the transfer wore him out and had tank and transferred line to her tank and the second tranfer to car wore him out more.
[2019-08-25] MEDS ORDERED: LOVA40 PO (12:14)
[2019-08-25] MEDS ORDERED: LORA.5 PO (12:15)
[2019-08-25] MEDS ORDERED: FOLI1 PO (12:16)
[2019-08-25] MEDS ORDERED: ELIQUIS5 MG PO (12:17)
[2019-08-25] MEDS ORDERED: OMEP20ER PO (12:17)
[2019-08-25] MEDS ORDERED: HYDR1TAB94 PO (19:19)
[2019-08-25] MEDS ORDERED: DEXA.5 (19:19)
== END 2019-08-24 14:45 | disposition home or self-care (01) | DRG 872 ==
LOC: ER 18:37 → PCU 22:39
PROVIDERS: Family Medicine; Pharmacist; ADMIT Internal Medicine
PROC: 0W9930Z Drainage of Right Pleural Cavity with Drainage Device, Percutaneous Approach (ICD-10-PCS; principal; 2019-08-22)
DX: A41.9 Sepsis, unspecified organism (principal); C34.91 Malignant neoplasm of unspecified part of right bronchus or lung; J91.0 Malignant pleural effusion; I48.20 Chronic atrial fibrillation, unspecified; Z68.1 Body mass index [BMI] 19.9 or less, adult; R65.20 Severe sepsis without septic shock; L89.322 Pressure ulcer of left buttock, stage 2; R41.0 Disorientation, unspecified; T38.7X5A Adverse effect of androgens and anabolic congeners, initial encounter; Z85.46 Personal history of malignant neoplasm of prostate; G60.9 Hereditary and idiopathic neuropathy, unspecified; F41.9 Anxiety disorder, unspecified; Z74.01 Bed confinement status; Z79.899 Other long term (current) drug therapy; D63.8 Anemia in other chronic diseases classified elsewhere; Z79.01 Long term (current) use of anticoagulants; R62.7 Adult failure to thrive; T38.0X5A Adverse effect of glucocorticoids and synthetic analogues, initial encounter
CPT/HCPCS: 36415; 70450; 71046; 80048; 80053; 80202; 83605; 85025; 87040; 87070; 87075; 87205; 96374; 97161; 97530; 99285-25; J1630; J1644; J2543; J3370; J7030

== ENCOUNTER → 2019-08-22 | Outpatient (CLI) | payer MEDICARE ==
[~2019-08-22] MED LIST changes: +Augmentin 875-1 EACH PO; +DEXA.5; +ELIQUIS5 MG PO; +FOLI1 PO; -METO25ER PO; +METO50ER PO; +OMEP20ER PO
[2019-08-22 17:26] LABS: BASOPHILS ABSOLUTE AUTO 0.02 K/mm3 (0.00-0.23); BASOPHILS PERCENT AUTO 0 % (0-2); EOSINOPHILS PERCENT AUTO 0 % (0-6); Hemoglobin 8.3 g/dL (13.5-17.5); IMMATURE GRAN ABSOLUTE AUTO 0.54 K/mm3 (0.00-0.10); IMMATURE GRAN PERCENT AUTO 3 % (0-1); LYMPHOCYTES ABSOLUTE AUTO 0.41 K/mm3 (0.84-5.20); LYMPHOCYTES PERCENT AUTO 2 % (21-46); MONOCYTES PERCENT AUTO 4 % (4-13); Mean Corpuscular HGB 28.1 pg (26.0-34.0); Mean Corpuscular HGB Conc 30.7 g/dL (31.5-36.5); Mean Corpuscular Volume 92 fL (80-100); Mean Platelet Volume 10.8 fL (9.1-12.4); NEUTROPHILS ABSOLUTE AUTO 19.05 K/mm3 (1.96-9.15); NEUTROPHILS PERCENT AUTO 91 % (41-73); NRBC ABSOLUTE 0.09 K/mm3 (0.00-0.02); NRBC Auto 0.4 /100 WBC (0.0-0.2); Platelet Count 579 K/mm3 (150-400); RDW Coefficient Variation 22.2 % (11.7-14.2); RDW Standard Deviation 67.3 fL (35.1-46.3); Red Blood Cell Count 2.95 M/mm3 (4.30-5.90); White Blood Cell Count 20.92 K/mm3 (4.00-11.30)
[2019-08-22 17:47] LABS: Alanine Aminotransfer (ALT/SGP 25 U/L (12-78); Albumin, Blood 2.1 g/dL (3.4-5.0); Albumin/Globulin Ratio 0.5 (0.8-1.8); Alk Phos 102 U/L (50-136); Anion Gap 11 mmol/L (6-16); Aspartate Aminotrans (AST/SGOT 33 U/L (12-37); Bilirubin, Total 0.5 mg/dL (0.1-1.0); Blood Urea Nitrogen 22 mg/dL (8-24); Bun/Creatinine Ratio 64.1 (12.0-20.0); CO2, Blood 27 mmol/L (21-32); Calcium, Blood 9.1 mg/dL (8.5-10.1); Chloride, Blood 101 mmol/L (98-108); Creatinine, Blood 0.34 mg/dL (0.60-1.20); Globulin, Blood 4.3 g/dL (2.2-4.0); Glomerular Filtration Rate >60 (60-); Glucose, Blood 102 mg/dL (70-99); Sodium, Blood 139 mmol/L (136-145); Total Protein, Blood 6.4 g/dL (6.4-8.2)
[2019-08-22 17:50] LABS: Blood, Urine 5+ (Neg); Glucose Qualitative, Urine Neg (Neg); Ketones, Urine 2+ (Neg); Leukocyte Esterase, Urine 1+ (Neg); Nitrite, Urine Neg (Neg); Protein, Urine 2+ (Neg); Urobilinogen, Urine 3+ (Normal)
[2019-08-22 17:51] LABS: Appearance, Urine Cloudy (Clear); Bilirubin, Urine 1+ (Neg); Color, Urine Amber (P-Yellow)
[2019-08-22 17:56] LABS: Bacteria Many /hpf; Mucus Light (0-Heavy); Red Blood Cells, Urine TNTC /hpf (0-2); Squamous Epithelial Cells Few /hpf (Few)
== END ==
LOC: EDSTATUS 09:30 → LAB SHORT 15:50 → LAB 17:17 → EDSTATUS 17:31
PROVIDERS: Registered Nurse Oncology
DX: C34.90 Malignant neoplasm of unspecified part of unspecified bronchus or lung (principal)
CPT/HCPCS: 80053; 81001; 85025; 86850; 86900; 86901

== ENCOUNTER 2019-08-25 08:18 | Inpatient (IN) | payer MEDICARE ==
[~2019-08-25] VITALS: Ht 182.9 cm; Wt 72.1 kg
[~2019-08-25 08:18] MED LIST changes: +Augmentin 875-1 EACH PO
[2019-08-25 08:36] LABS: BASOPHILS ABSOLUTE AUTO 0.05 K/mm3 (0.00-0.23); BASOPHILS PERCENT AUTO 0 % (0-2); EOSINOPHILS ABSOLUTE AUTO 0.01 K/mm3 (0.00-0.68); EOSINOPHILS PERCENT AUTO 0 % (0-6); Hematocrit 31.8 % (37.0-53.0); Hemoglobin 9.6 g/dL (13.5-17.5); IMMATURE GRAN ABSOLUTE AUTO 0.26 K/mm3 (0.00-0.10); IMMATURE GRAN PERCENT AUTO 1 % (0-1); LYMPHOCYTES ABSOLUTE AUTO 0.43 K/mm3 (0.84-5.20); LYMPHOCYTES PERCENT AUTO 1 % (21-46); MONOCYTES ABSOLUTE AUTO 0.22 K/mm3 (0.16-1.47); MONOCYTES PERCENT AUTO 1 % (4-13); Mean Corpuscular HGB 28.2 pg (26.0-34.0); Mean Corpuscular HGB Conc 30.2 g/dL (31.5-36.5); Mean Corpuscular Volume 94 fL (80-100); Mean Platelet Volume 10.4 fL (9.1-12.4); NEUTROPHILS ABSOLUTE AUTO 31.73 K/mm3 (1.96-9.15); NEUTROPHILS PERCENT AUTO 97 % (41-73); NRBC ABSOLUTE 0.08 K/mm3 (0.00-0.02); NRBC Auto 0.2 /100 WBC (0.0-0.2); Platelet Count 521 K/mm3 (150-400); RDW Coefficient Variation 23.5 % (11.7-14.2); RDW Standard Deviation 72.9 fL (35.1-46.3)
[2019-08-25 08:36] LABS: PCO2 Arterial 53.8 mmHg (35-45); PO2 Arterial 149 mmHg (80-100)
[2019-08-25 08:37] LABS: pH Blood Arterial 7.28 (7.35-7.45)
[2019-08-25 08:52] LABS: International Normalized Ratio 1.28; Prothrombin Time Results 13.5 Sec (9.7-11.5)
[2019-08-25 08:58] LABS: Alanine Aminotransfer (ALT/SGP 27 U/L (12-78); Albumin, Blood 2.4 g/dL (3.4-5.0); Albumin/Globulin Ratio 0.5 (0.8-1.8); Alk Phos 126 U/L (50-136); Anion Gap 11 mmol/L (6-16); Aspartate Aminotrans (AST/SGOT 61 U/L (12-37); Bilirubin, Total 0.7 mg/dL (0.1-1.0); Blood Urea Nitrogen 39 mg/dL (8-24); Bun/Creatinine Ratio 56.7 (12.0-20.0); CO2, Blood 25 mmol/L (21-32); Calcium, Blood 8.9 mg/dL (8.5-10.1); Chloride, Blood 104 mmol/L (98-108); Creatinine, Blood 0.69 mg/dL (0.60-1.20); Globulin, Blood 4.7 g/dL (2.2-4.0); Glomerular Filtration Rate >60 (60-); Glucose, Blood 150 mg/dL (70-99); Potassium, Blood 4.1 mmol/L (3.5-5.5); Sodium, Blood 140 mmol/L (136-145); Total Protein, Blood 7.1 g/dL (6.4-8.2); Troponin I 0.021 ng/mL (0.000-0.040)
[2019-08-25] MEDS ORDERED: LOVA40 PO (12:14)
[2019-08-25] MEDS ORDERED: LORA.5 PO (12:15)
[2019-08-25] MEDS ORDERED: FOLI1 PO (12:16)
[2019-08-25] MEDS ORDERED: OMEP20ER PO (12:17)
[2019-08-25] MEDS ORDERED: ELIQUIS5 MG PO (12:17)
[2019-08-25 16:11] LABS: PCO2 Arterial 69.7 mmHg (35-45); PO2 Arterial 77.6 mmHg (80-100); pH Blood Arterial 7.22 (7.35-7.45)
--- NOTE | 2019-08-25 17:00 | NUR ---
PT RECEIVED FROM ERD @1500 PT IS HERE FOR ACUTE RESPIRATORY FAILURE, PT UNRESPONSIVE TO PAIN AND VERBAL STIMULI, HRR SINUS ON THE 80'S, SATS RANGING 86-88% ON BIPAPA 55% OF O2. FAMILY AT BEDSIDE DISCUSSED REAGRDING PT'S CODE STATUS IN TERMS OF PT'S CONDITION AND HISTORY OF LUNG CA. PT WAS SEEN BY DR SOSA, ABG ORDERED PH 7.22, PLAN TO TRASNFER PT TO ICU IF THERES ANY ROOM AVAILABLE. PT PLEUREX ON RIGHT SIDE OF THE CHEST CLAMPED. WILL MONITOR
--- NOTE | 2019-08-25 17:13 | NUR ---
UPDATE DR. HSU HAS BEEN CONSULTED AFTER REVIEWING ABG RESULTS WITH DR. SOSA. PLAN FOR TRANSFER TO ICU. RESPIRATIONS HAVE INCREASED TO 20-40. O2 SATS 90 WITH BIPAP FI02 60%. BP 80/51. DR SOSA NOTIFIED OF BP AND SMALL BOLUS OF NS 250ML INFUSING ORDERED. FAMILY AT BEDSIDE HAVE BEEN EDUCATED AND UPDATED ON PT CONDITION. AWAITING ICU TRANSFER.
--- NOTE | 2019-08-25 18:16 | NUR ---
LEVOPHED PER DR. HSU LEVOPHED GTT STARTED PERIPHERALLY AT 2MC/KG/MIN. IV FLUSHED AND PATENT PRIOR TO LEVOPHED INITIATION.
--- NOTE | 2019-08-25 18:27 | NUR ---
PT RECIEVED VIA BED AT 1743. PT IS LARGELY UNRESPONSIVE AND ONLY NOVING HEAD VERY SL SIDE TO SIDE. THERE IS A EYE LASH BLINK, PUPILS ARE PINPOINT. LUNGS ARE SEVERLY DIMINISHED T/O AND > ON R SIDE. BP LOW NOTED AND WILL CONSIDER LEVOPHED GTT PER DR HSU. BIPAP IS 16/6 BUR-12 100%. ATTENDS IS DRY. LEGS ARE MOTTLED AND COLD UP TO KNEES. WT IS NOTED AT 71.6KG. THORACNETESIS DRAIN TO R CHEST FOR PLEURAL EFFUSION. IV AT 20G TO RFA AND 22 TO LH. TEMP IS 97.3.
[2019-08-25] MEDS ORDERED: HYDR1TAB94 PO (19:19)
[2019-08-25] MEDS ORDERED: DEXA.5 (19:19)
--- NOTE | 2019-08-25 19:58 | NUR ---
Pt returned primary physician and intensivit met with family for plan of care. pt has pleurex hold drain at this time. pt minimaly responsive , mottled and pale on pressors. plan is to try to hold til family arrives.
--- NOTE | 2019-08-25 20:00 | NUR ---
ASSESSMENT/ASSUMED CARE PT UNRESPONSIVE WITH FAMILY AT BEDSIDE. PT NOT FOLLOWING INSTRUCTIONS. OPENS EYES AT TIMES. MOVES EXT BUT VERY WEAK. BILAT LOWER EXT COOL TO TOUCH WITH MOTTLING UP TO KNEES. PULSES WEAK. DR MORE AT BEDSIDE ANSWERING QUESTIONS FOR FAMILY. LUNGS DECREASED THROUGHOUT. PT ON BIPAP 16/6 FIO2 70% RATE 12. ORAL CARE DONE, MOUTH DRY. HEART RATE SINUS RHYTHM, SINUS TACH 98-102. BP STABLE ON LEVOPHED AT 10 MCQ/MIN TO KEEP MAP ABOVE 60. BT+ HYPOACTIVE. PT NPO. ATTENDS CD&I. IV 22G TO RIGHT WRIST SALINE LOCKED, SITE CLEAR. IV 20G TO LEFT FOREARM WITH LEVOPHED AT 10 MCQ/MIN. SITE CLEAR.
[2019-08-25 20:20] LABS: Base Excess Venous 0.6 mmol/L; Bicarbonate Venous 23.3 mmol/L (24.0-30.0); PCO2 Venous 70 mmHg (38-42); PO2 Venous 35.2 mmHg (38-42); pH Blood Venous 7.22 (7.34-7.37)
[2019-08-25 20:44] LABS: Anion Gap 9 mmol/L (6-16); Blood Urea Nitrogen 45 mg/dL (8-24); Bun/Creatinine Ratio 45.8 (12.0-20.0); CO2, Blood 30 mmol/L (21-32); Calcium, Blood 9.1 mg/dL (8.5-10.1); Chloride, Blood 104 mmol/L (98-108); Creatinine, Blood 0.98 mg/dL (0.60-1.20); Glomerular Filtration Rate >60 (60-); Glucose, Blood 146 mg/dL (70-99); Potassium, Blood 4.5 mmol/L (3.5-5.5); Sodium, Blood 143 mmol/L (136-145)
[2019-08-26 03:35] LABS: BASOPHILS PERCENT AUTO 0 % (0-2); EOSINOPHILS PERCENT AUTO 0 % (0-6); Hematocrit 34.4 % (37.0-53.0); Hemoglobin 10.1 g/dL (13.5-17.5); Mean Corpuscular HGB 28.5 pg (26.0-34.0); Mean Corpuscular HGB Conc 29.4 g/dL (31.5-36.5); Mean Platelet Volume 10.7 fL (9.1-12.4); NRBC Auto 0.6 /100 WBC (0.0-0.2); Platelet Count 492 K/mm3 (150-400); RDW Coefficient Variation 23.1 % (11.7-14.2); RDW Standard Deviation 78.5 fL (35.1-46.3); Red Blood Cell Count 3.54 M/mm3 (4.30-5.90); White Blood Cell Count 32.21 K/mm3 (4.00-11.30)
[2019-08-26 03:36] LABS: IMMATURE GRAN ABSOLUTE AUTO 0.31 K/mm3 (0.00-0.10); IMMATURE GRAN PERCENT AUTO 1 % (0-1); LYMPHOCYTES ABSOLUTE AUTO 0.28 K/mm3 (0.84-5.20); LYMPHOCYTES PERCENT AUTO 1 % (21-46); MONOCYTES ABSOLUTE AUTO 0.07 K/mm3 (0.16-1.47); MONOCYTES PERCENT AUTO 0 % (4-13); Mean Corpuscular Volume 97 fL (80-100); NEUTROPHILS ABSOLUTE AUTO 31.45 K/mm3 (1.96-9.15); NEUTROPHILS PERCENT AUTO 98 % (41-73)
[2019-08-26 03:58] LABS: Albumin, Blood 2.2 g/dL (3.4-5.0); Albumin/Globulin Ratio 0.4 (0.8-1.8); Bilirubin, Total 0.6 mg/dL (0.1-1.0); Bun/Creatinine Ratio 38.6 (12.0-20.0); Calcium, Blood 8.6 mg/dL (8.5-10.1); Creatinine, Blood 1.4 mg/dL (0.60-1.20); Globulin, Blood 4.9 g/dL (2.2-4.0); Total Protein, Blood 7.1 g/dL (6.4-8.2)
--- NOTE | 2019-08-26 06:04 | NUR ---
SHIFT SUMMARY PT REMAINS NONRESPONSIVE TO STIMULI. HE IS MOVING ARMS AT TIMES AND OPENING EYES. BIPAP ON THROUGHOUT THE NIGHT EXCEPT FOR ORAL CARE. LUNGS VERY DECREASED TO THE RIGHT, CLEAR AND DECREASED TO THE LEFT. BIPAP SETTINGS 16/6 RATE 12 FIO2 70%. LEVOPHED INCREASED DURING THE NIGHT TO KEEP MAP ABOVE 60. CURRENT SETTING ON LEVOPHED 14 MCQ/MIN. PT INCONT OF SMALL AMT URINE TWICE DURING THE NIGHT. TURNED Q2HR SIDE TO SIDE DUE TO BREAKDOWN ON COCCYX. EXT COOL TO TOUCH. MOTTLING TO LOWER EXT FROM KNEES DOWN. FAMILY AT BEDSIDE. REPORT TO ON COMING NURSE
--- NOTE | 2019-08-26 09:47 | NUR ---
AM NOTE... PT IS POSITONED FOR COMFORT WITH HEAD SL ELEVATED AND HEELS FLOATED. PT WILL SPONT. MOVE HEAD SIDE TO SIDE A LITTEL AND WILL MOVE ARMS RANDOMLY, BUT THERE IS NO CLEAR INDICATION THAT PT IS FOLLOWING ANY COMMANDS. PT BLINKS TO EYE LASH STIMULATION, WILL NOT FOLLOW ANY VERBAL COMMANDS. PT RR IS UPPER 38-40 AND FIO2 60% INDICATED. EXTREMETIES COOL AND KNEES MOTTLED. IV SITES CLEAR AND INTACT WITH LEVOPHED GTT TO L FA IV SITE. PT ON BIPAP 16/12.
--- NOTE | 2019-08-26 10:52 | NUR ---
DR CABALLERO IN TO VISIT WITH FAMILY. DECISION HAS BEEN MADE TO MOVE SOON TO COMFORT CARE AND WILL FOLLOW FAMILY LEAD REGARDING TIMING. PT REMAINS ON LEVOPHED GTT AT 14 MCG WITH NOTED PRESSURES AND FAMILY AT BEDSIDE.
--- NOTE | 2019-08-26 13:04 | NUR ---
PT IS RESTING COMFORTABLE AFTER 4MG M.S. AWAITING FAMILY TO ARRIVE AND PROCCED WITH FULL COMFORT CARE AND WITHDRAWAL OF LEVOPHED AND BIPAP.
--- NOTE | 2019-08-26 17:32 | NUR ---
PT BODY WAS REMOVED TO PEARSONMatt BY ADA.
== END 2019-08-26 17:50 | DRG 177 ==
LOC: ER 08:18 → ICUE 10:17 → ERHOLD 10:17 → ICUE 14:40 → PCU 14:56 → ICUE 17:45
PROVIDERS: Emergency Medicine; Internal Medicine Critical Care Medicine; ADMIT Family Medicine
PROC: 0W993ZZ Drainage of Right Pleural Cavity, Percutaneous Approach (ICD-10-PCS; principal; 2019-08-25)
PROC: 5A09357 Assistance with Respiratory Ventilation, Less than 24 Consecutive Hours, Continuous Positive Airway Pressure (ICD-10-PCS; 2019-08-25)
DX: J69.0 Pneumonitis due to inhalation of food and vomit (principal); J96.01 Acute respiratory failure with hypoxia; C34.91 Malignant neoplasm of unspecified part of right bronchus or lung; I48.20 Chronic atrial fibrillation, unspecified; J91.0 Malignant pleural effusion; E87.1 Hypo-osmolality and hyponatremia; E87.2 Acidosis; G60.9 Hereditary and idiopathic neuropathy, unspecified; Z85.46 Personal history of malignant neoplasm of prostate; F41.9 Anxiety disorder, unspecified; I95.9 Hypotension, unspecified; Z51.5 Encounter for palliative care; T45.1X5A Adverse effect of antineoplastic and immunosuppressive drugs, initial encounter
CPT/HCPCS: 36415; 36600; 71045; 80048; 80053; 82803; 83605; 84484; 85025; 85610; 93005; 93010; 94660; 96361; 96374; 96375; 99285-25; C1769; J0696; J1644; J2270; J7030; J7050; J7060; J7070